=== PATIENT | male | born 1990 | race Caucasian/White ===

== ENCOUNTER 2023-04-26 07:11 | Day surgery (SDC) | payer OTHER ==
[2023-04-26] VITALS (191 sets, daily range): BP systolic 93–142; BP diastolic 51–109
[~2023-04-26] VITALS: Ht 180.3 cm; Wt 104.5 kg
[2023-04-26 08:21] LABS: BASO% 0.7 % (0-3); EOS% 6.4 % (0-8); HEMATOCRIT 43.1 % (39.0-50.0); HEMOGLOBIN 14.1 g/dl (14.0-18.0); IMMATURE GRANULOCYTES 0.4 % (0.0-5.0); LYMPH% 30.6 % (15-41); MEAN CELL VOLUME 87.6 fL CALC (80.0-100.0); MEAN CORPUSCULAR HGB 28.7 pG CALC (26.0-32.0); MEAN CORPUSCULAR HGB CONC 32.7 g/dL CAL (32.0-36.0); MONO% 12.7 % (2-13); NEUT# 4.85 thou/uL (1.82-7.42); NEUT% 49.2 % (42-76); RED BLOOD COUNT 4.92 mill/uL (4.70-6.10); RED CELL DISTRI WIDTH 13.4 % (11.5-15.5)
[2023-04-26] MEDS ORDERED: NAPROXEN500 MG PO (08:34)
[2023-04-26] MEDS ORDERED: FLEXERIL5 M1 PO (08:34)
[2023-04-26 08:43] LABS: ALBUMIN 4.1 g/dL (3.2-5.0); ALKALINE PHOSPHATASE 62 u/l (38-126); ANION GAP 12 (6-22 (CALC)); BILIRUBIN, TOTAL 0.3 mg/dL (0.2-1.3); BUN 8 mg/dL (9-20); BUN/CREATININE RATIO 14 (12-20 (CALC)); CARBON DIOXIDE 27 mmol/l (22-30); CHLORIDE 105 mmol/l (95-108); CREATININE 0.6 mg/dL (0.7-1.3); GFR FOR AFR.AMER. > 60 ML/MIN (>=60 (CALC)); GFR OTHER RACES > 60 ML/MIN (>=60 (CALC)); POTASSIUM 4.2 mmol/l (3.5-5.1); SGOT/AST 27 u/l (17-59); SODIUM 139 mmol/l (137-146)
[2023-04-26] MEDS ORDERED: NALTREXONE50 MG PO (15:48)
[2023-04-26] MEDS ORDERED: CLONIDINE0.1 MG PO (15:49)
[2023-04-26] MEDS ORDERED: KLONOPIN2 MG PO (15:49)
[2023-04-27 04:28] VITALS: BP 126/78
[2023-04-27 04:42] LABS: BASO% 0.1 % (0-3); HEMATOCRIT 44.8 % (39.0-50.0); IMMATURE GRANULOCYTES 0.3 % (0.0-5.0); LYMPH% 8.9 % (15-41); MEAN CELL VOLUME 85.3 fL CALC (80.0-100.0); MEAN CORPUSCULAR HGB 28.6 pG CALC (26.0-32.0); MEAN CORPUSCULAR HGB CONC 33.5 g/dL CAL (32.0-36.0); MONO% 2.8 % (2-13); NEUT# 13.57 thou/uL (1.82-7.42); NEUT% 87.9 % (42-76); RED BLOOD COUNT 5.25 mill/uL (4.70-6.10); RED CELL DISTRI WIDTH 13.2 % (11.5-15.5)
[2023-04-27 04:53] LABS: ALBUMIN 4.2 g/dL (3.2-5.0); ALKALINE PHOSPHATASE 69 u/l (38-126); ANION GAP 16 (6-22 (CALC)); BUN 7 mg/dL (9-20); BUN/CREATININE RATIO 13 (12-20 (CALC)); CARBON DIOXIDE 23 mmol/l (22-30); CHLORIDE 103 mmol/l (95-108); CREATININE 0.5 mg/dL (0.7-1.3); GFR FOR AFR.AMER. > 60 ML/MIN (>=60 (CALC)); GFR OTHER RACES > 60 ML/MIN (>=60 (CALC)); MAGNESIUM 1.8 mg/dL (1.6-2.3); POTASSIUM 3.7 mmol/l (3.5-5.1); SGOT/AST 30 u/l (17-59); SODIUM 139 mmol/l (137-146); TOTAL PROTEIN 6.8 g/dL (6.3-8.2)
[2023-04-27 05:02] LABS: BILIRUBIN, TOTAL 0.6 mg/dL (0.2-1.3)
[2023-04-27 07:08] VITALS: BP 127/77
[2023-04-27 07:45] VITALS: BP 127/77
== END 2023-04-27 16:59 | disposition home or self-care (01) | DRG 897 ==
LOC: ANR 07:11 → MS2 07:35 → ANR 07:35
PROVIDERS: ATTEND Anesthesiology
DX: F11.20 Opioid dependence, uncomplicated (principal)
CPT/HCPCS: J0131; J2354; J3475